=== PATIENT | male | born 1950 | race Caucasian/White ===

== ENCOUNTER 2017-05-15 03:57 | Emergency (ER) | payer BC ==
[~2017-05-15] VITALS: Ht 172.7 cm; Wt 94.4 kg
[2017-05-15] MEDS ORDERED: VASOTEC5 MG PO (04:11)
[2017-05-15] MEDS ORDERED: PREDNISONE5 MG PO (04:11)
[2017-05-15] MEDS ORDERED: ASPIRIN81 MG PO (04:12)
[2017-05-15] MEDS ORDERED: METOPROL TAR25 MG PO ×2 (04:12)
[2017-05-15] MEDS ORDERED: TRILEPTAL300 M1 PO (04:13)
[2017-05-15] MEDS ORDERED: SIMVASTATIN40 MG PO (04:13)
[2017-05-15] MEDS ORDERED: GABAPENTIN100 MG PO (04:13)
[2017-05-15] MEDS ORDERED: NAPROSYN500 MG PO (05:38)
[2017-05-15 05:55] VITALS: BP 147/66
== END 2017-05-15 05:44 | disposition home or self-care (01) | DRG 552 ==
LOC: ED 03:57
DX: S13.9XXA Sprain of joints and ligaments of unspecified parts of neck, initial encounter (principal); J44.9 Chronic obstructive pulmonary disease, unspecified; Z94.0 Kidney transplant status; S43.401A Unspecified sprain of right shoulder joint, initial encounter; I10 Essential (primary) hypertension; I25.2 Old myocardial infarction; W19.XXXA Unspecified fall, initial encounter; Y92.009 Unspecified place in unspecified non-institutional (private) residence as the place of occurrence of the external cause; Z95.1 Presence of aortocoronary bypass graft